=== PATIENT | female | born 1985 | race Caucasian/White ===

== ENCOUNTER 2019-07-26 08:16 | Emergency (ER) | payer MEDICAID ==
[~2019-07-26] VITALS: Ht 165.1 cm; Wt 51.5 kg
[2019-07-26 08:31] VITALS: BP 109/73
--- NOTE | 2019-07-26 08:31 | NUR ---
PATIENT PRESENTS TO ED WITH BACK PAIN X 2DAYS. PT STATES THAT SHE TRIPPED AND HIT HER BACK ON THE KITCHEN COUNTERTOP. PT WITH 10/10 SHARP PAIN WHEN MOVING. SHE IS UNABLE TO TURN WAIST FROM SIDE TO SIDE. NO MEDS TAKEN. NO URINARY SYMPTOMS. VSS; PATIENT IS AMBULATORY. PATIENT POSITIONED FOR COMFORT; HOB ELEVATED; BEDRAILS UP X2; BED DOWN. ER MD MADE AWARE OF PT STATUS. LMP: JUN 12, 2019 PMH: NONE MEDS: NONE ALLERGIES: NONE
[2019-07-26] MEDS ORDERED: IBUPROFEN 400 MG TAB PO ONE (08:40)
[2019-07-26 09:16] VITALS: BP 109/73
== END 2019-07-26 09:17 | disposition home or self-care (01) ==
LOC: MED 08:16
DX: S22.31XA Fracture of one rib, right side, initial encounter for closed fracture (principal); Z98.890 Other specified postprocedural states; W01.198A Fall on same level from slipping, tripping and stumbling with subsequent striking against other object, initial encounter; Y93.E5 Activity, floor mopping and cleaning; Y92.009 Unspecified place in unspecified non-institutional (private) residence as the place of occurrence of the external cause; Y99.8 Other external cause status
CPT/HCPCS: 71101; 99283